=== PATIENT | male | born 1965 | race Two or more races ===

== ENCOUNTER 2016-06-08 15:15 | Emergency (ER) | payer OTHER ==
[2016-06-08 15:37] VITALS: BP 123/87; PULSE 118; RESP 20; TEMP 98
--- NOTE | 2016-06-08 16:34 | ED ---
Skin/Abscess/FB HPI - General Chief complaint: Skin/Abscess/Foreign Body Stated complaint: finger swelling/poss infection Time Seen by Provider: 06/08/16 16:21 Source: patient, RN notes reviewed Mode of arrival: ambulatory Limitations: no limitations - History of Present Illness Initial comments: 50-year-old male presents emergency Department chief complaint infection to his right hand index finger. Patient states his been present for approximately one week. Patient states he believes it started as a hangnail. Patient denies fever, chills. Patient states is swollen, painful. Patient states she has no history of MRSA. Patient offers no other complaints. - Related Data Home Medications Medication Instructions Recorded Confirmed Multivitamins, Thera [Multivitamin] 1 tab PO DAILY 06/08/16 06/08/16 Previous Rx's Medication Instructions Recorded Acetaminophen-Codeine 300-30mg 1 tab PO Q4H PRN #20 tablet 06/08/16 [Tylenol #3] Cephalexin [Keflex] 500 mg PO Q6HR #40 cap 06/08/16 Ibuprofen [Motrin] 600 mg PO Q8HR PRN #30 tab 06/08/16 Allergies Allergy/AdvReac Type Severity Reaction Status Date / Time No Known Allergies Allergy Verified 06/08/16 16:28 Review of Systems ROS Statement: Those systems with pertinent positive or pertinent negative responses have been documented in the HPI. ROS Other: All systems not noted in ROS Statement are negative. Past Medical History Past Medical History: No Reported History History of Any Multi-Drug Resistant Organisms: None Reported Past Surgical History: No Surgical Hx Reported Past Psychological History: No Psychological Hx Reported Smoking Status: Never smoker Past Alcohol Use History: None Reported Past Drug Use History: None Reported General Exam Limitations: no limitations General appearance: alert, in no apparent distress Respiratory exam: Present: normal lung sounds bilaterally. Absent: respiratory distress, wheezes, rales, rhonchi, stridor Cardiovascular Exam: Present: regular rate, normal rhythm, normal heart sounds. Absent: systolic murmur, diastolic murmur, rubs, gallop, clicks Extremities exam: Present: other (Right hand second digit there is swelling noted of the nail fold with moderate tenderness patient does have full range of motion.) Skin exam: Present: warm, dry Course Vital Signs 06/08/16 15:36 Temperature 98.0 F Pulse Rate 118 H Respiratory 20 Rate Blood Pressure 123/87 O2 Sat by Pulse 100 Oximetry Procedures - Procedures Initial comment: I&D paronychia right hand second digit area was cleaned with chlorhexidine wiped , 18-gauge needle was used to I&D the paronychia. Patient tolerated well no compilations wound culture obtained Disposition Clinical Impression: Paronychia of finger of right hand Disposition: HOME SELF-CARE Condition: Stable Instructions: Paronychia (ED) Additional Instructions: Please return to the Emergency Department if symptoms worsen or any other concerns. Prescriptions: Acetaminophen-Codeine 300-30mg [Tylenol #3] 1 tab PO Q4H PRN #20 tablet PRN Reason: pain Cephalexin [Keflex] 500 mg PO Q6HR #40 cap Ibuprofen [Motrin] 600 mg PO Q8HR PRN #30 tab PRN Reason: Pain Referrals: Cheryl Heaton MD [Primary Care Provider] - 1-2 days Time of Disposition: 16:34
== END 2016-06-08 16:50 | disposition home or self-care (01) ==
LOC: EC 15:15
DX: L03.011 Cellulitis of right finger (principal)
CPT/HCPCS: 10060; 87070; 87205; 99283

== ENCOUNTER → 2016-06-27 | Outpatient (CLI) | payer OTHER ==
[2016-06-27 20:53] LABS: Basophils % (A) 0 %; CH 27.9; CHCM 31.3; Eosinophils # (A) 0.5 k/uL (0-0.7); Eosinophils % (A) 5 %; HCT 48.7 % (39.0-53.0); HDW 2.25; HGB 15.1 gm/dL (13.0-17.5); Luc # (Auto) 0.18; Luc % (Auto) 2; Lymphocytes # (A) 1.6 k/uL (1.0-4.8); Lymphocytes % (A) 17 %; MCH 27.8 pg (25.0-35.0); MCV 89.6 fL (80.0-100.0); Mean Platelet Volume 8.4; Monocytes # (A) 0.5 k/uL (0-1.0); Monocytes % (A) 5 %; Neutrophils % (A) 71 %; RBC 5.44 m/uL (4.30-5.90); RDW 14.3 % (11.5-15.5); WBC 9.8 k/uL (3.8-10.6); WBC (Perox) 9.87
[2016-06-27 21:01] LABS: ALT 55 U/L (21-72); AST 73 U/L (17-59); Alkaline Phosphatase 89 U/L (38-126); Anion Gap 12 mmol/L; Blood Urea Nitrogen 14 mg/dL (9-20); Calcium 9.1 mg/dL (8.4-10.2); Carbon Dioxide 24 mmol/L (22-30); Chloride 108 mmol/L (98-107); Cholesterol 164 mg/dL (<200); Glucose 89 mg/dL (74-99); HDL Cholesterol 52 mg/dL (40-60); Non-African American GFR(MDRD) >60 (>60 ml/min/1.73 sqM); Potassium 4.6 mmol/L (3.5-5.1); Sodium 144 mmol/L (137-145); Total Bilirubin 0.8 mg/dL (0.2-1.3); Total Protein 7.3 g/dL (6.3-8.2); Triglycerides 111 mg/dL (<150)
[2016-06-27 21:45] LABS: Hemoglobin A1C 5.5 % (4.2-6.1)
== END | disposition home or self-care (01) ==
LOC: MMGSC 14:55
PROVIDERS: ATTEND Family Medicine
DX: Z00.00 Encounter for general adult medical examination without abnormal findings (principal); R63.1 Polydipsia; Z83.3 Family history of diabetes mellitus
CPT/HCPCS: 36415; 80053; 80061; 83036; 84439; 84443; 85025

== ENCOUNTER 2016-08-15 06:17 | Day surgery (SDC) | payer OTHER ==
[2016-08-13 08:40] VITALS: BMI 28.8
[2016-08-15] MEDS ORDERED: SODIUM CHLORIDE 0.9% 1,000 ML IV SCH ×2 (06:21→08:00)
[2016-08-15] MEDS ORDERED: PROPOFOL 10 MG/ML 20 ML VIAL IV ONE (07:51)
[2016-08-15 09:34] VITALS: TEMP 98.4
[2016-08-15 10:33] LABS: Basophils # (A) 0.1 k/uL (0-0.2); Basophils % (A) 1 %; CH 28.5; CHCM 32.1; Eosinophils # (A) 0.4 k/uL (0-0.7); Eosinophils % (A) 4 %; HCT 45.8 % (39.0-53.0); HDW 2.31; HGB 14.7 gm/dL (13.0-17.5); Luc # (Auto) 0.15; Luc % (Auto) 1; Lymphocytes # (A) 1.9 k/uL (1.0-4.8); Lymphocytes % (A) 18 %; MCH 28.7 pg (25.0-35.0); MCHC 32.2 g/dL (31.0-37.0); MCV 89.2 fL (80.0-100.0); Mean Platelet Volume 6.8; Monocytes # (A) 0.3 k/uL (0-1.0); Monocytes % (A) 3 %; Neutrophils # (A) 7.7 k/uL (1.3-7.7); Neutrophils % (A) 73 %; RBC 5.13 m/uL (4.30-5.90); RDW 14.5 % (11.5-15.5); WBC 10.6 k/uL (3.8-10.6); WBC (Perox) 10.52
[2016-08-15 10:44] LABS: Anion Gap 9 mmol/L; Blood Urea Nitrogen 18 mg/dL (9-20); Calcium 8.9 mg/dL (8.4-10.2); Carbon Dioxide 24 mmol/L (22-30); Chloride 107 mmol/L (98-107); Glucose 137 mg/dL (74-99); Non-African American GFR(MDRD) >60 (>60 ml/min/1.73 sqM); Potassium 4.3 mmol/L (3.5-5.1); Sodium 140 mmol/L (137-145)
[2016-08-15 11:19] VITALS: RESP 16
[2016-08-15 12:56] VITALS: BP 117/86; PULSE 59
--- NOTE | 2016-08-15 13:03 | CE ---
DATE OF SERVICE: 08/15/2016 PROCEDURE: Electrical cardioversion. INDICATION: Atrial fibrillation, persistent. CLINICAL INFORMATION: Mr. Ulises Arechiga is a 50-year-old gentleman with a history of recent onset atrial fib that we are aware of. After adequately anticoagulating him and achieving decent rate control, he was advised electrical cardioversion. Risks, benefits, options and rationale were discussed with the patient and . PROCEDURE NOTE: Under the influence of ultra short-acting intravenous anesthetic agent, with the attendance of the anesthesiologist, initially a single shock of 200 joules was delivered with anterior and posterior patches. Patient remained in atrial fib with a moderate rate. A second shock was delivered at 250 joules and he converted to sinus rhythm. The patient is in sinus rhythm and neurologically stable, hemodynamically intact. This was a successful electrical cardioversion. He will be discharged later on today after lunch after he has had a meal. Results were discussed with the patient and . I will see him in the office on August 19. He will be sent home on the same medications which include Xarelto 20 mg daily and metoprolol succinate 50 mg daily.
--- NOTE | 2016-08-15 13:05 | LTR ---
August 15, 2016 JHON MORE MD RE: Ulises Arechiga Dear Dr. Blanchard: Thank you for the opportunity to participate in the care of Mr. Ulises Arechiga. I am pleased to report to you that he had a successful cardioversion. He is in sinus rhythm and hemodynamically stable. I hope he will remain in sinus rhythm indefinitely. He will be discharged later on today when he is fully awake and I will see him in the office next week. Thank you for your referral and please call for questions. With kindest regards. Sincerely yours, JANICE SINGH MD
== END 2016-08-15 13:00 | disposition home or self-care (01) ==
LOC: CATHCVL 06:17
PROVIDERS: ATTEND Internal Medicine Interventional Cardiology
DX: I48.1 Persistent atrial fibrillation (principal); Z87.891 Personal history of nicotine dependence; Z79.01 Long term (current) use of anticoagulants; Z79.1 Long term (current) use of non-steroidal anti-inflammatories (NSAID); Z79.899 Other long term (current) drug therapy
CPT/HCPCS: 92960; 80048; 85025; J2704

== ENCOUNTER 2019-06-14 21:04 | Emergency (ER) | payer OTHER ==
[2019-06-14 21:09] VITALS: TEMP 98.2
--- NOTE | 2019-06-14 21:35 | ED ---
Chest Pain HPI - General Chief Complaint: Chest Pain Stated Complaint: abd/chest pain Time Seen by Provider: 06/14/19 21:10 Source: patient Mode of arrival: ambulatory Limitations: no limitations - History of Present Illness Initial Comments: This patient is a 53-year-old man who presents with complaint of epigastric pain that is been going on intermittently for a week or so. He describes it as a poking sensation. He has not noted worsening or relieving factors. The patient states that they're currently no symptoms. It has at times felt like it was going towards the back. Complaint: chest pain Onset/Timin -: week(s) Onset: during rest Pain Location: epigastric Pain Radiation: none Severity: moderate Quality: other ("like a poke") Consistency: intermittent Improves With: nothing Worsens With: other (Stress) Treatments Prior to Arrival: none - Related Data Home Medications Medication Instructions Recorded Confirmed Metoprolol Succinate (ER) [Toprol 50 mg PO DAILY 08/13/16 08/15/16 Xl] Rivaroxaban [Xarelto] 20 mg PO DAILY 08/13/16 08/15/16 Allergies Allergy/AdvReac Type Severity Reaction Status Date / Time No Known Allergies Allergy Verified 06/14/19 21:08 Review of Systems ROS Statement: Those systems with pertinent positive or pertinent negative responses have been documented in the HPI. ROS Other: All systems not noted in ROS Statement are negative. Constitutional: Denies: fever, chills Respiratory: Denies: cough, dyspnea Cardiovascular: Denies: chest pain, palpitations, edema Gastrointestinal: Denies: abdominal pain, nausea, vomiting Genitourinary: Denies: dysuria, hematuria Musculoskeletal: Denies: back pain Skin: Denies: rash Neurological: Denies: headache, weakness, numbness EKG Findings - EKG Comments: EKG Findings:: Possible old anterior infarct. Low voltage QRS complex. - EKG Results: EKG: interpreted by ERMD, sinus rhythm (With PAC), normal axis, normal ST/T EKG shows: bradycardia (Rate 59 bpm) Past Medical History Past Medical History: Atrial Fibrillation, Asthma, Seizure Disorder Additional Past Medical History / Comment(s): last seizure 10 yrs ago, hx ulcer, History of Any Multi-Drug Resistant Organisms: None Reported Past Surgical History: No Surgical Hx Reported Past Anesthesia/Blood Transfusion Reactions: No Reported Reaction Past Psychological History: No Psychological Hx Reported Smoking Status: Former smoker Past Alcohol Use History: None Reported Past Drug Use History: None Reported - Past Family History Mother Family Medical History: No Reported History General Exam Limitations: no limitations General appearance: alert, in no apparent distress Head exam: Present: atraumatic, normocephalic Eye exam: Present: normal appearance. Absent: scleral icterus, conjunctival injection Neck exam: Present: normal inspection Respiratory exam: Present: normal lung sounds bilaterally. Absent: respiratory distress, wheezes, rales, rhonchi, stridor, chest wall tenderness, accessory muscle use Cardiovascular Exam: Present: regular rate, normal rhythm, normal heart sounds. Absent: systolic murmur, diastolic murmur, rubs, gallop GI/Abdominal exam: Present: soft. Absent: distended, tenderness, guarding, rebound, rigid, mass, pulsatile mass, hernia Extremities exam: Present: normal inspection, normal capillary refill. Absent: pedal edema, calf tenderness Back exam: Present: normal inspection. Absent: CVA tenderness (R), CVA tenderness (L) Neurological exam: Present: alert Skin exam: Present: warm, dry, intact, normal color. Absent: rash Course Vital Signs 06/14/19 06/14/19 06/14/19 21:06 21:57 23:33 Temperature 98.2 F 98.2 F Pulse Rate 63 59 L 61 Respiratory 20 18 18 Rate Blood Pressure 153/96 138/89 134/87 O2 Sat by Pulse 100 99 99 Oximetry Chest Pain [facility] Patient's 53-year-old man with intermittent pains in the epigastric area and found to have mild elevations of amylase and lipase. He does not drink alcohol. The ultrasound does not show evidence of gall stones. The patient will follow-up to have these labs rechecked. We did discuss appropriate return parameters and further follow-up. Disposition Clinical Impression: Epigastric pain Disposition: HOME SELF-CARE Condition: Good Instructions (If sedation given, give patient instructions): Chest Pain (ED) Additional Instructions: As we discussed, follow up and have the amylase and lipase rechecked. Should those continue to be elevated CAT scan may be required Is patient prescribed a controlled substance at d/c from ED?: No Referrals: Cheryl Heaton MD [Primary Care Provider] - 1-2 days
--- NOTE | 2019-06-14 21:53 | XR ---
EXAMINATION TYPE: XR chest 2V DATE OF EXAM: 06/14/2019 COMPARISON: NONE HISTORY: Chest pain TECHNIQUE: 2 views FINDINGS: Heart and mediastinum are normal. Lungs are clear. Diaphragm is normal. Bony thorax appears normal. IMPRESSION: Normal chest.
[2019-06-14 21:58] VITALS: RESP 18
[2019-06-14 22:06] LABS: Basophils # (A) 0.1 k/uL (0-0.2); Basophils % (A) 1 %; Eosinophils # (A) 0.2 k/uL (0-0.7); Eosinophils % (A) 2 %; HGB 13.5 gm/dL (13.0-17.5); Lymphocytes # (A) 1.4 k/uL (1.0-4.8); Lymphocytes % (A) 12 %; MCH 28.1 pg (25.0-35.0); MCHC 32.2 g/dL (31.0-37.0); MCV 87.3 fL (80.0-100.0); Mean Platelet Volume 7.8; Monocytes # (A) 0.6 k/uL (0-1.0); Monocytes % (A) 5 %; Neutrophils # (A) 9.9 k/uL (1.3-7.7); Neutrophils % (A) 81 %; Platelet Count 189 k/uL (150-450); RBC 4.82 m/uL (4.30-5.90); RDW 14.2 % (11.5-15.5); WBC 12.3 k/uL (3.8-10.6)
[2019-06-14 22:19] LABS: ALT 28 U/L (4-49); AST 42 U/L (17-59); African American GFR (CKD) >90 (>60 ml/min/1.73 sqM); Albumin 3.9 g/dL (3.5-5.0); Alkaline Phosphatase 84 U/L (38-126); Amylase 170 U/L (30-110); Anion Gap 8 mmol/L; Blood Urea Nitrogen 14 mg/dL (9-20); Calcium 8.9 mg/dL (8.4-10.2); Carbon Dioxide 24 mmol/L (22-30); Chloride 107 mmol/L (98-107); Glucose 108 mg/dL (74-99); Magnesium 1.8 mg/dL (1.6-2.3); Non-African American GFR(CKD) >90 (>60 ml/min/1.73 sqM); Potassium 4.1 mmol/L (3.5-5.1); Sodium 139 mmol/L (137-145); Total Bilirubin 0.7 mg/dL (0.2-1.3); Total Protein 6.9 g/dL (6.3-8.2)
[2019-06-14 22:28] LABS: INR 1.1 (<1.2); Partial Thromboplastin Time 25.7 sec (22.0-30.0); Prothrombin Time 11.3 sec (9.0-12.0)
[2019-06-14 22:38] LABS: D-Dimer 0.62 mg/L FEU (<0.60)
[2019-06-14 23:35] VITALS: BP 134/87; PULSE 61
--- NOTE | 2019-06-15 00:46 | US ---
EXAMINATION TYPE: US abdomen limited DATE OF EXAM: 06/15/2019 COMPARISON: NONE CLINICAL HISTORY: epigastric pain, attention RUQ. Epigastric pain x 1 week, ATTN RUQ. EXAM MEASUREMENTS: Liver Length: 13.4 cm Gallbladder Wall: 0.31 cm CBD: 0.36 cm Right Kidney: 11.1 x 4.7 x 4.6 cm Limited due to body habitus and overlying bowel gas. Pancreas: Slightly limited due to gas. Liver: No abnormalities seen at this time. Gallbladder: Appears to be anechoic. Evidence for sonographic Trevino's sign: No CBD: Appears to be wnl. Right Kidney: No hydronephrosis or masses seen IMPRESSION: Negative right upper quadrant abdominal sonogram. No gallstones or dilated ducts.
== END 2019-06-15 01:18 | disposition home or self-care (01) ==
LOC: EC 21:04
DX: R10.13 Epigastric pain (principal); R74.8 Abnormal levels of other serum enzymes; R07.9 Chest pain, unspecified; I48.91 Unspecified atrial fibrillation; Z87.891 Personal history of nicotine dependence; Z79.01 Long term (current) use of anticoagulants; Z79.899 Other long term (current) drug therapy
CPT/HCPCS: 36415; 71046; 76705; 80053; 82150; 83690; 83735; 84484; 85025; 85379; 85610; 85730; 99285

== ENCOUNTER 2021-01-02 06:12 | Day surgery (SDC) | payer OTHER ==
[2021-01-01 08:33] VITALS: BMI 31.0
[~2021-01-02 06:12] MED LIST: LACTATED RINGERS 1,000 ML IV SCH; SODIUM CHLORIDE 0.9% 1,000 ML IV SCH
[2021-01-02] MEDS ORDERED: SODIUM CHLORIDE 0.9% 500 ML 500 ML IV ONE (06:45)
[2021-01-02 07:09] VITALS: RESP 16; TEMP 98.4
[2021-01-02] MEDS ORDERED: PROPOFOL 10 MG/ML 20 ML VIAL IV ONE (07:30)
[2021-01-02 09:21] VITALS: BP 141/84
--- NOTE | 2021-01-02 09:33 | CE ---
CARDIAC ELECTROPHYSIOLOGY REPORT PROCEDURE: Electrical cardioversion. CLINICAL INFORMATION: Mr. Arechiga is a 55-year-old gentleman with a history of hypertension, hyperlipidemia and paroxysmal atrial flutter fibrillation syndrome. He developed atrial flutter, required hospitalization. Rate control was achieved. Adequate anticoagulation was achieved. He was advised cardioversion after due discussion regarding risks, benefits and options. PROCEDURE NOTE: Under the influence of ultra short-acting intravenous anesthetic agent with the attendance of the anesthesiologist, a single 120-joule shock was delivered to the chest with anterior and posterior patches in a synchronized fashion. The patient converted to sinus rhythm, had PVCs. With the anesthesia, he developed a little choking feeling, but he recovered very well, remained hemodynamically stable and neurologically intact. This was a successful electrical cardioversion. The patient has isolated PVCs and PACs. Details were discussed with the patient and his . He will be discharged later on today once he is fully awake, ambulatory and has had a meal. MMODL / IJN: [id number] /
[2021-01-02 09:38] VITALS: PULSE 55
== END 2021-01-02 09:38 | disposition home or self-care (01) ==
LOC: CATHCVL 06:12
PROVIDERS: ATTEND Internal Medicine Interventional Cardiology
DX: I48.0 Paroxysmal atrial fibrillation (principal); I10 Essential (primary) hypertension; E78.5 Hyperlipidemia, unspecified; I48.92 Unspecified atrial flutter; Z79.01 Long term (current) use of anticoagulants; Z79.899 Other long term (current) drug therapy; I42.8 Other cardiomyopathies; J45.909 Unspecified asthma, uncomplicated
CPT/HCPCS: 92960; J2704

== ENCOUNTER 2022-08-12 07:21 | Day surgery (SDC) | payer OTHER ==
[2022-08-12] MEDS ORDERED: LACTATED RINGERS 1,000 ML IV ONE (08:06)
[2022-08-12 08:30] LABS: Calcium 8.7 mg/dL (8.4-10.2); Potassium 4.5 mmol/L (3.5-5.1)
[2022-08-12] MEDS ORDERED: PROPOFOL 10 MG/ML 20 ML VIAL IV ONE (09:04)
[2022-08-12 09:31] VITALS: TEMP 97
[2022-08-12] MEDS ORDERED: METOPROLOL TARTRATE 25 MG TAB PO STA (10:01)
[2022-08-12 10:24] VITALS: RESP 16
[2022-08-12 10:42] VITALS: BP 140/91; PULSE 58
--- NOTE | 2022-08-12 10:56 | CE ---
CARDIAC ELECTROPHYSIOLOGY REPORT PROCEDURE: Electrical cardioversion. INDICATION: Persistent atrial fibrillation. CLINICAL INFORMATION: Mr. Ulises Arechiga is a 56-year-old gentleman with a history of persistent atrial fibrillation, unresponsive to pharmacological efforts. Then, therefore after adequate anticoagulation for more than 6 weeks, he was brought in for electrical cardioversion. PROCEDURE NOTE: Under the influence of [id number] intravenous anesthetic agent with the attendance of the anesthesiologist, a single shock of 50 joules was delivered to the chest wall with anterior and posterior patches. The patient converted to sinus rhythm and remained neurologically intact, hemodynamically stable. He had some choking spells, but he recovered from the anesthesia very well without any issue. He will be on Eliquis and beta-kyle and discharged later on today after he is ambulatory, and I will see him in the office within the next 7 to 10 days. He already has an appointment. Details were discussed with the patient as well as with his . MMCHRISTOPH / FILEMON: [id number] /
== END 2022-08-12 11:04 | disposition home or self-care (01) ==
LOC: OR 07:21
PROVIDERS: ATTEND Internal Medicine Interventional Cardiology
DX: I48.11 Longstanding persistent atrial fibrillation (principal); I42.8 Other cardiomyopathies; Z79.01 Long term (current) use of anticoagulants; J45.909 Unspecified asthma, uncomplicated; Z87.891 Personal history of nicotine dependence; F41.9 Anxiety disorder, unspecified; Z86.73 Personal history of transient ischemic attack (TIA), and cerebral infarction without residual deficits; Z79.899 Other long term (current) drug therapy
CPT/HCPCS: 92960; 93005; 80048; J2704

== ENCOUNTER → 2022-10-02 | Outpatient (CLI) | payer OTHER ==
--- NOTE | 2022-10-02 09:41 | MR ---
EXAMINATION TYPE: MR Prostate wo/w con DATE OF EXAM: 10/02/2022 COMPARISON: None. INDICATION: Elevated PSA PSA: 5.40 ng/ml on July 24, 2022 increased from 3.7 on December 20, 2020 Recent Biopsy and Date: None Pathology Report (If Applicable): n/a TECHNIQUE: Examination was performed using a 3T MRI without an endorectal coil. Multiparametric imaging was perf ormed with T2 mutliplanar sequences, axial diffusion weighted imaging and dynamic contrast enhanced i maging, utilizing 9 mL intravenous Gadavist gadolinium contrast. FINDINGS: PROSTATE VOLUME: 6.2 cm SI x 4.7 cm AP x 6.5 cm LR Vol= 99.2 cc PSA DENSITY: 0.05 ng/ml/cc Markedly enlarged prostate gland with marked transitional zone hypertrophy. Peripheral zone show some areas of indistinct mild diminished signal on ADC mapping without moderate to severe diminished sign al or increased signal on diffusion-weighted imaging. Central transitional zone shows marked heteroge neity. There is indwelling capsulated 1.4 cm anterior right-sided nodule in the base axial image 24. Prostate Capsule is maintained. Seminal vesicles appear within normal limits. Urinary bladder poorly distended with mild to moderate wall thickening and mild trabeculation. No free fluid or pelvic adeno nadeen. No suspicious bowel dilatation. Visualized osseous structures are intact. IMPRESSION: Markedly enlarged prostate consistent with BPH. A focus of clinically significant cancer is not identified. Highest Assessment Category: 2 MRI Stage: T0 N0 M0 based on review of pelvic images. False negative rates for MRI range from 5-20% depending on risk profile. Assessment Categories: 1 ? Very low (clinically significant cancer is highly unlikely to be present) 2 ? Low (clinically significant cancer is unlikely to be present) 3 ? Intermediate (the presence of clinically significant cancer is equivocal) 4 ? High (clinically significant cancer is likely to be present) 5 ? Very high (clinically significant cancer is highly likely to be present)
== END | disposition home or self-care (01) ==
LOC: RADMRIMAIN 08:27
PROVIDERS: ATTEND Urology
DX: N40.0 Benign prostatic hyperplasia without lower urinary tract symptoms (principal); R97.20 Elevated prostate specific antigen [PSA]
CPT/HCPCS: 72197; A9585

== ENCOUNTER → 2023-09-04 | Outpatient (CLI) | payer OTHER ==
--- NOTE | 2023-09-04 13:15 | US ---
EXAMINATION TYPE: US groin BILAT DATE OF EXAM: 09/04/2023 COMPARISON: NONE CLINICAL INDICATION: Male, 57 years old with history of K40.90 UNIL INGUINAL HERNIA, W/O OBST OR GANG R, NO; right groin pain TECHNIQUE: Grayscale images of the bilateral groins were obtained. FINDINGS: Scanned bilateral groin. No evidence of abnormality by ultrasound at this time IMPRESSION: No significant adenopathy seen. No ultrasound evidence of hernia.
== END | disposition home or self-care (01) ==
LOC: RADUSWWP 09:25
PROVIDERS: ATTEND Family Medicine
DX: K40.90 Unilateral inguinal hernia, without obstruction or gangrene, not specified as recurrent (principal)
CPT/HCPCS: 76882

== ENCOUNTER → 2024-02-08 | Outpatient (CLI) | payer OTHER ==
--- NOTE | 2024-02-08 17:33 | CA ---
Transthoracic Echo Report Name: Ulises Arechiga Age: 58 Gender: M : 1965 Exam Date: 02/08/2024 11:40 Exam Location: [facility] Ht (in): 69 Wt (lb): 200 Ordering Physician: Deon Hardy MD ([id number]) Attending/Referring Phys: Deon Hardy MD ([id number]) Molder Operator La Mims RDCS Procedure CPT: Indications: a fib Cardiac Hx: Technical Quality: Contrast 1: Total Dose (mL): Contrast 2: Total Dose (mL): MEASUREMENTS (Male / Female) Normal Values 2D ECHO LV Diastolic Diameter PLAX 4.7 cm 4.2 - 5.9 / 3.9 - 5.3 cm LV Systolic Diameter PLAX 2.7 cm IVS Diastolic Thickness 1.0 cm 0.6 - 1.0 / 0.6 - 0.9 cm LVPW Diastolic Thickness 1.1 cm 0.6 - 1.0 / 0.6 - 0.9 cm LV Relative Wall Thickness 0.4 RV Internal Dim ED PLAX 3.0 cm LA Volume 56.7 cm??? 18 - 58 / 22 - 52 cm??? LA Volume Index 26.7 cm???/m??? 16 - 28 cm???/m??? M-MODE Aortic Root Diameter MM 3.1 cm LA Systolic Diameter MM 4.4 cm LA Ao Ratio MM 1.4 AV Cusp Separation MM 2.1 cm DOPPLER AV Peak Velocity 106.0 cm/s AV Peak Gradient 4.5 mmHg AV Mean Velocity 78.1 cm/s AV Mean Gradient 2.7 mmHg AV Velocity Time Integral 22.6 cm LVOT Peak Velocity 101.4 cm/s LVOT Peak Gradient 4.1 mmHg LVOT Velocity Time Integral 18.9 cm MV Area PHT 3.3 cm??? Mitral E Point Velocity 101.4 cm/s Mitral A Point Velocity 25.6 cm/s Mitral E to A Ratio 4.0 MV Deceleration Time 231.5 ms MV E' Velocity 10.1 cm/s Mitral E to MV E' Ratio 10.1 FINDINGS Left Ventricle Normal Left ventricular size, wall thickness, systolic function with no obvious regional wall motion abnormalities. Normal Left ventricular diastolic filling pattern. Left ventricular ejection fraction is estimated at 55-60 %. Right Ventricle Normal right ventricular size and function. Right ventricular systolic pressure within normal limits. Right Atrium Normal right atrial size. Left Atrium Normal left atrial size. Mitral Valve Structurally normal mitral valve. Trace mitral regurgitation. Aortic Valve Trileaflet aortic valve. No aortic valve stenosis or regurgitation. Tricuspid Valve Structurally normal tricuspid valve. Trace tricuspid regurgitation. Pulmonic Valve Structurally normal pulmonic valve. Pericardium No pericardial effusion. Aorta Normal size aortic root and proximal ascending aorta. CONCLUSIONS Normal LV function Previewed by: Dr. Amado Plunkett MD (Electronically Signed) Final Date: 08 February 2024 17:32
== END | disposition home or self-care (01) ==
LOC: RADECHMAIN 11:26
PROVIDERS: ATTEND Internal Medicine Interventional Cardiology
DX: I48.0 Paroxysmal atrial fibrillation (principal)
CPT/HCPCS: 93306

== ENCOUNTER 2024-06-30 08:41 | Day surgery (SDC) | payer OTHER ==
[2024-06-28 10:22] VITALS: BMI 29.0
[~2024-06-30 08:41] MED LIST changes: -LACTATED RINGERS 1,000 ML IV SCH
[2024-06-30] MEDS: LIDOCAINE 1% (10MG/ML) FOR IV START INTRADERMA STA (09:16)
[2024-06-30] MEDS: SODIUM CHLORIDE 0.9% 500 ML 500 ML IV ONE (09:16)
[2024-06-30] MEDS: ONDANSETRON 4 MG/2 ML VIAL IVP STA (09:30)
[2024-06-30] MEDS: DEXAMETHASONE SOD PHOSPHATE 4 MG/ML 1 ML VIAL IVP STA (09:30)
[2024-06-30] MEDS: FAMOTIDINE 20 MG/2 ML VIAL IV STA (09:30)
[2024-06-30 09:33] VITALS: TEMP 96.6
[2024-06-30 09:47] LABS: African American GFR (CKD) 84 (>60 ml/min/1.73 sqM); Anion Gap 9 mmol/L; Blood Urea Nitrogen 14 mg/dL (9-20); Calcium 9.1 mg/dL (8.4-10.2); Carbon Dioxide 21 mmol/L (22-30); Chloride 105 mmol/L (98-107); Glucose 100 mg/dL (74-99); Non-African American GFR(CKD) 73 (>60 ml/min/1.73 sqM); Sodium 135 mmol/L (137-145)
[2024-06-30] MEDS ORDERED: PROPOFOL 10 MG/ML 20 ML VIAL IV ONE (10:01)
[2024-06-30 10:14] LABS: Potassium 5.2 mmol/L (3.5-5.1)
--- NOTE | 2024-06-30 10:58 | CE ---
CARDIAC ELECTROPHYSIOLOGY REPORT PROCEDURE PERFORMED: Electrical cardioversion. INDICATION: Persistent atrial fibrillation in spite of pharmacological efforts. CLINICAL INFORMATION: Mr. Ulises Arechiga is a gentleman with a symptomatic paroxysmal atrial fibrillation, which makes him have a decreased LV function. He has developed this over the last 3 to 4 weeks. He has been well anticoagulated at least for 4 weeks on Eliquis. He was brought in for electrical cardioversion electively after unsuccessful efforts with amiodarone. PROCEDURE NOTE: Under the influence of [id number] intravenous anesthetic agent with the attendance of the anesthesiologist, a single shock of 120 joules was delivered with anterior and posterior patches. The patient converted to sinus rhythm, remained hemodynamically stable and neurologically intact. He will be discharged later on today on the same medical regimen and will see me next at 9:45 a.m. The details were discussed with the patient as well as his . NELLY / FILEMON: [id number] /
[2024-06-30 11:57] VITALS: BP 136/88; PULSE 62; RESP 16
== END 2024-06-30 11:58 | disposition home or self-care (01) ==
LOC: OR 08:41
PROVIDERS: ATTEND Internal Medicine Interventional Cardiology
DX: I48.11 Longstanding persistent atrial fibrillation (principal); Z79.01 Long term (current) use of anticoagulants
CPT/HCPCS: 92960; 80048; J1100; J2405; J3490; J2704